=== PATIENT | male | born 1990 | race African-American/Black ===

== ENCOUNTER 2021-06-13 07:08 | Emergency (ER) | payer MEDICAID ==
[~2021-06-13] VITALS: Ht 165.1 cm; Wt 61.2 kg
[2021-06-13 07:20] VITALS: BP_SYST 147
--- NOTE | 2021-06-13 07:20 | NUR ---
Patient to ER bed 3 to gown for evaluation. Side rails up.
--- NOTE | 2021-06-13 07:22 | NUR ---
Pt came into ER with complaint of sharp LLQ pain 6/10 non radiating X3days. Pt last BM yesterday and was normal for the pt. Pt denies pain or burning with urination. Pt denies N/V/D. Pt denies any straining ot working out. Pt resting in [facility] [id number] speaking full sentences no distress noted at this time. Pt blood pressure slightly elevated 147/83.
--- NOTE | 2021-06-13 07:30 | NUR ---
Urine collected and sent to lab.
--- NOTE | 2021-06-13 07:32 | NUR ---
ER at bedside examining patient.
--- NOTE | 2021-06-13 07:42 | NUR ---
Patient transported to radiology via wheelchair, accompanied by tech.
--- NOTE | 2021-06-13 07:49 | NUR ---
Pt back from CT.
[2021-06-13 08:07] LABS: BILIRUBIN,URINE NEGATIVE (NEGATIVE); BLOOD, URINE NEGATIVE (NEGATIVE); CLARITY/URINE CLEAR (CLEAR); COLOR,URINE YELLOW (YELLOW); GLUCOSE,URINE NEGATIVE (NEGATIVE); KETONES,URINE NEGATIVE (NEGATIVE); LEUKOCYTE ESTERASE ,URINE NEGATIVE (NEGATIVE); NITRITE, URINE NEGATIVE (NEGATIVE); PROTEIN URINE NEGATIVE (NEGATIVE); UROBILINOGEN,URINE 0.2 (0.2-1.0)
[2021-06-13 08:11] LABS: BASOPHILS % (AUTO) 0.4 % (0.0-2.0); EOSINOPHILS # (AUTO) 0.1 K/uL (0.0-0.4); EOSINOPHILS % (AUTO) 1.3 % (0.0-4.0); HEMATOCRIT 48.6 % (36-54); HEMOGLOBIN 15.8 g/dL (14.0-18.0); MEAN CORPUSCULAR HEMOGLOBIN 26 pg (27-31); MEAN CORPUSCULAR HGB CONC 33 % (32-36); MEAN CORPUSCULAR VOLUME 80 fL (79.0-98.0); MONOCYTES # (AUTO) 0.8 K/uL (0.0-1.0); MONOCYTES % (AUTO) 7.8 % (1.7-9.3); NEUTROPHILS # (AUTO) 7.1 K/uL (1.8-7.7); NEUTROPHILS % (AUTO) 70.5 % (40.0-70.0); PLATELET COUNT (AUTO) 230 K/uL (130-430); RED CELL DISTRIBUTION WIDTH 13.9 % (9.0-15.0)
[2021-06-13 08:40] LABS: INR 1.1 (0.80-1.20); PROTHROMBIN TIME 11.2 SECS (9.5-12.5)
[2021-06-13 08:45] LABS: CALCIUM 9.1 mg/dL (8.4-11.0); POTASSIUM 3.8 mmol/L (3.5-5.1)
[2021-06-13 08:51] LABS: ALBUMIN 3.9 g/dL (3.4-4.8); TOTAL BILIRUBIN 0.4 mg/dL (0.0-1.0)
[2021-06-13] MEDS ORDERED: NACL 0.9% 1,000 ML IV ONE (10:45)
[2021-06-13] MEDS ORDERED: MORPHINE 2 MG/ML INJ. SYRINGE IVP ONE (10:45)
[2021-06-13] MEDS ORDERED: ONDANSETRON HCL 4 MG/2 ML VIAL IVP ONE (10:45)
--- NOTE | 2021-06-13 10:50 | NUR ---
# 20 gauge angiocath placed to LAC. Use of asceptic technique. Opsite placed over site. Blood return noted. Blood for lab drawn from site. Flushed with 10 cc of normal saline. No evidence of infiltration noted. Patient tolerated well.
--- NOTE | 2021-06-13 12:52 | NUR ---
Pt asleep in [facility] VSS no distress noted at this time. Breathing is even and unlabored.
--- NOTE | 2021-06-13 13:37 | NUR ---
TRANSFER ACKOWLEDMENT RECEIEVED FROM PT, ALL BELONGINGS WITH PT.
--- NOTE | 2021-06-13 13:42 | NUR ---
Patient to be transferred to [facility] . Is being transferred due to higher level of care. Receiving facility has accepting physician and available space. ER physician has signed transfer form. Patient or responsible green party has agreed to transfer and signed form. Patient belongings inventoried and will be sent with patient. Copy of nursing notes, lab reports, EKG, Physicians Orders and X-rays to be sent with patient. Report called to Yaneth CHRISTENSEN at receiving facility. Receiving physician is Dr. Stewart. [employer] lift service has been called for transfer. ETA is 5 minutes.
[2021-06-13 13:47] VITALS: BP_SYST 146
== END 2021-06-13 13:42 | disposition short-term general hospital (02) ==
LOC: SED 07:08
DX: K85.90 Acute pancreatitis without necrosis or infection, unspecified (principal); Z20.822 Contact with and (suspected) exposure to COVID-19
CPT/HCPCS: 36415; 74176; 76376; 80053; 81003; 83690; 85025; 85610; 85730; 87426; 96361; 96374; 96375; 99284; J2270; J2405; J7030